=== PATIENT | male | born 1965 | race Caucasian/White ===

== ENCOUNTER 2017-01-12 19:33 | Inpatient (IN) | payer OTHER ==
[2017-01-12] MEDS ORDERED: ACETAMINOPHEN 325 MG TABLET (FP) ONE (20:29)
[2017-01-12] MEDS ORDERED: ACETAMINOPHEN 325 MG TABLET (FP) PO ONE (20:32)
[2017-01-12] MEDS ORDERED: SODIUM CHLORIDE 0.9% 1000 ML INFUS.BAG IV STA (21:06)
--- NOTE | 2017-01-12 21:19 | PDOC ---
History of Present Illness - General Chief Complaint: Pain Stated Complaint: ABSCESS BOIL Time Seen by Provider: 01/12/17 21:01 History Source: Patient - History of Present Illness Initial Comments: 01/12/17 21:27 51 year old male with left groin pain and abscess worsening x 1 week. reports worsening redness, tenderness and tmax 101 at home. + smoker no pmhx. no PMD Past History - Past Medical History Allergies/Adverse Reactions: Allergies Allergy/AdvReac Type Severity Reaction Status Date / Time No Known Allergies Allergy Verified 01/12/17 19:53 Home Medications: Ambulatory Orders NK [No Known Home Medication] 01/12/17 Other medical history: Pt denies - Suicide/Smoking/Psychosocial Hx Smoking History: Current every day smoker Have you smoked in the past 12 months: Yes Number of Cigarettes Smoked Daily: 10 Information on smoking cessation initiated: No Hx Alcohol Use: No Drug/Substance Use Hx: No Substance Use Type: None Review of Systems - Review of Systems Integumentary: Yes: Other (left groin abscess) *Physical Exam - Vital Signs Last Vital Signs Temp Pulse Resp BP Pulse Ox 100.1 F H 109 H 20 145/96 98 01/12/17 19:54 01/12/17 19:54 01/12/17 19:54 01/12/17 19:54 01/12/17 19:54 - Physical Exam General Appearance: Yes: Appropriately Dressed Respiratory/Chest: positive: Lungs Clear, Normal Breath Sounds Cardiovascular: positive: Regular Rhythm, Regular Rate, Tachycardia Gastrointestinal/Abdominal: positive: Normal Bowel Sounds, Soft Extremity: positive: Normal Capillary Refill, Normal Inspection, Normal Range of Motion Integumentary: positive: Normal Color, Dry, Warm, Erythema (left groin draining small amount of pus with erythema and streaking to scrotum and groin. + inguinal lymphadenopathy) Neurologic: positive: Fully Oriented, Alert, Normal Mood/Affect Heart Score/ECG Review - ECG Intrepretation Rhythm: Regular Rhythm Comment:: 01/12/17 21:42 NSR: 80 ED Treatment Course - LABORATORY CBC & Chemistry Diagram: 01/12/17 21:30 01/12/17 21:37 - Medications Given in the ED: ED Medications Discontinued Medications Generic Name Dose Route Start Last Admin Trade Name Freq PRN Reason Stop Dose Admin Acetaminophen 650 mg 01/12/17 20:32 01/12/17 20:32 Tylenol - PO 01/12/17 20:33 650 mg NOW ONE Administration Medical Decision Making - Medical Decision Making 01/12/17 21:29 A: left groin abscess P: cbc cmp Blood culture urine culture wound culture lactic acid IVF EKG/ chest xray soft tissue u/s fever/ pain control IV antibiotics *DC/Admit/Observation/Transfer Diagnosis at time of Disposition: Abscess of left groin, Abscess or cellulitis of groin - Discharge Dispostion Admit: Yes
[2017-01-12 21:39] LABS: BASOPHIL 0.7 % (0-2.0); EOSINOPHIL 0.5 % (0-4.5); MCHC 34.7 g/dl (32.0-35.9); MEAN CELL VOLUME 92.2 fl (80-96); MEAN PLT VOLUME 9.5 fl (7.5-11.1); PLATELET COUNT 217 K/MM3 (134-434); RDW 13.5 % (11.9-15.9); WHITE BLOOD COUNT 19.5 K/mm3 (4.0-10.0)
[2017-01-12 21:57] LABS: INR 1.21 (0.82-1.09); PROTHROMBIN TIME (PATIENT) 13.4 SEC (9.98-11.88)
[2017-01-12 22:00] LABS: ACTIVATED PTT 23.3 SECONDS (26.9-34.4)
[2017-01-12] MEDS ORDERED: PIPERACILLIN/TAZOB 4.5 GM/100 ML PRE-DOCKED IVPB ONE (22:44)
[2017-01-12] MEDS ORDERED: PIPERACILLIN/TAZOB 4.5 GM 100 ML IVPB ONE (22:52)
[2017-01-12 22:53] LABS: URINE APPEARANCE CLEAR; URINE BILIRUBIN NEGATIVE (NEGATIVE); URINE BLOOD 1+ (NEGATIVE); URINE COLOR YELLOW; URINE GLUCOSE (UA) 3+ (NEGATIVE); URINE KETONE 1+ (NEGATIVE); URINE LEUK ESTERASE NEGATIVE (NEGATIVE); URINE NITRITE NEGATIVE (NEGATIVE); URINE PROTEIN NEGATIVE (NEGATIVE)
[2017-01-12 23:05] LABS: URINE MUCUS RARE; URINE RBC <1 /hpf (0-3); URINE WBC 1 /hpf (3-5)
--- NOTE | 2017-01-12 23:18 | PN ---
Teaching Attending Note Name of Resident: Hilaria Lopez ATTENDING PHYSICIAN STATEMENT I saw and evaluated the patient. I reviewed the resident's note and discussed the case with the resident. I agree with the resident's findings and plan as documented. SUBJECTIVE:51 yo M who presents with L. groin abcesses. States he was febrile at home to 101. Denies any past surgical or medical hx, but is a current smoker. OBJECTIVE: Physical: VS: Vital Signs Period Temp Pulse Resp BP Sys/Gilliam Pulse Ox Last 24 Hr 100.1 F 109 20 145/96 98 GEN: NAD, Resting in bed, AA0X3 HEENT: NCAT, PERRL, throat without erythema or exudates CARD: RRR S1, S2 RESP: CTAB ABD: BSX4, NTD to palpation EXT:- C/C/E GROIN with 3 cm firm mass on left with surrounding erythema and white.serounsanginous drainage. CBCD WBC 19.5 K/mm3 (4.0-10.0) H 01/12/17 21:30 RBC 4.33 M/mm3 (4.00-5.60) 01/12/17 21:30 Hgb 13.9 GM/dL (11.7-16.9) 01/12/17 21:30 Hct 39.9 % (35.4-49) 01/12/17 21:30 MCV 92.2 fl (80-96) 01/12/17 21:30 MCHC 34.7 g/dl (32.0-35.9) 01/12/17 21:30 RDW 13.5 % (11.9-15.9) 01/12/17 21:30 Plt Count 217 K/MM3 (134-434) 01/12/17 21:30 MPV 9.5 fl (7.5-11.1) 01/12/17 21:30 CMP Sodium Cancelled 01/12/17 21:37 Potassium Cancelled 01/12/17 21:37 Chloride Cancelled 01/12/17 21:37 Carbon Dioxide Cancelled 01/12/17 21:37 Anion Gap Cancelled 01/12/17 21:37 BUN Cancelled 01/12/17 21:37 Creatinine Cancelled 01/12/17 21:37 Creat Clearance w eGFR Cancelled 01/12/17 21:37 Random Glucose Cancelled 01/12/17 21:37 Calcium Cancelled 01/12/17 21:37 Total Bilirubin Cancelled 01/12/17 21:37 AST Cancelled 01/12/17 21:37 ALT Cancelled 01/12/17 21:37 Alkaline Phosphatase Cancelled 01/12/17 21:37 Total Protein Cancelled 01/12/17 21:37 Albumin Cancelled 01/12/17 21:37 CARDIAC ENZYMES Creatine Kinase Cancelled 01/12/17 21:37 Troponin I Cancelled 01/12/17 21:37 L. Groin US- 2.4X2.4X0.9cm irregular elliptical shaped structure suggestive of abcess CMP Sodium 136 mmol/L (136-145) 01/12/17 22:34 Potassium 3.6 mmol/L (3.5-5.1) 01/12/17 22:34 Chloride 100 mmol/L (98-107) 01/12/17 22:34 Carbon Dioxide 24 mmol/L (21-32) 01/12/17 22:34 Anion Gap 12 (8-16) 01/12/17 22:34 BUN 13 mg/dL (7-18) 01/12/17 22:34 Creatinine 0.7 mg/dL (0.7-1.3) 01/12/17 22:34 Creat Clearance w eGFR > 60 (>60) 01/12/17 22:34 Random Glucose 271 mg/dL (74-106) H 01/12/17 22:34 Lactic Acid 0.9 mmol/L (0.4-2.0) 01/12/17 21:37 Calcium 8.4 mg/dL (8.5-10.1) L 01/12/17 22:34 Total Bilirubin 0.8 mg/dL (0.2-1.0) 01/12/17 22:34 AST 20 U/L (15-37) 01/12/17 22:34 ALT 50 U/L (12-78) 01/12/17 22:34 Alkaline Phosphatase 107 U/L (45-117) 01/12/17 22:34 Creatine Kinase 46 IU/L (39-308) 01/12/17 22:34 Troponin I < 0.02 ng/ml (0.00-0.05) 01/12/17 22:34 Total Protein 7.0 g/dl (6.4-8.2) 01/12/17 22:34 Albumin 3.3 g/dl (3.4-5.0) L 01/12/17 22:34 ASSESSMENT AND PLAN: 51 M with no pmhx who presents with groin abcess and found to be septic 1.) Sepsis - Most likely from groin abcess - AFTER BMP Vanco/Zosyn with renal dosing - ID consult and Sx. Consult to eval. need for possible I&D - Repeat LA - IVF - Hiv test if pt. willing - Repeat labs in am - CT Pelvis 2.) Dvt Ppx - Low risk - SCD Place in Med-Sx
--- NOTE | 2017-01-12 23:21 | HP ---
Admitting History and Physical - Admission History of Present Illness: 51M with no PMH and no follow up with PMD presents to the ED with a 1 weeks history of a left groin abscess. For the past week it has been worsening. He states he has had fevers and chills at home for the past 3 days. Patient endorses some purulent drainage. He denies nausea vomiting chest pain or shortness of breath. Denies testicular mass. Erythema has been spreading down from left superior part of groin down to perineum. History Source: Patient Limitations to Obtaining History: No Limitations - Smoking History Smoking history: Current every day smoker Have you smoked in the past 12 months: Yes Aproximately how many cigarettes per day: 10 - Alcohol/Substance Use Hx Alcohol Use: No Home Medications - Allergies Allergies/Adverse Reactions: Allergies Allergy/AdvReac Type Severity Reaction Status Date / Time No Known Allergies Allergy Verified 01/12/17 19:53 - Home Medications Home Medications: Ambulatory Orders NK [No Known Home Medication] 01/12/17 Review of Systems - Review of Systems Constitutional: reports: Chills, Fever Genitourinary: reports: Testicular Swelling, Other Breasts: reports: No Symptoms Reported Musculoskeletal: reports: No Symptoms Integumentary: reports: Erythema, Wound, Other (left groin draining abscess) Endocrine: reports: Intolerance to Heat Psychiatric: reports: No Symptoms Physical Examination Vital Signs: Vital Signs Temperature 100.1 F H 01/12/17 19:54 Pulse Rate 109 H 01/12/17 19:54 Respiratory Rate 20 01/12/17 19:54 Blood Pressure 145/96 01/12/17 19:54 O2 Sat by Pulse Oximetry (%) 98 01/12/17 19:54 Constitutional: Yes: Well Nourished, No Distress, Calm Eyes: Yes: Conjunctiva Clear HENT: Yes: Atraumatic, Normocephalic Neck: Yes: Supple, Trachea Midline Cardiovascular: Yes: Regular Rate and Rhythm, S1, S2. No: Murmur Respiratory: Yes: Regular, CTA Bilaterally Gastrointestinal: Yes: Normal Bowel Sounds, Soft ...Rectal Exam: Yes: WNL, Sphincter Tone Normal. No: Erythema, Hemorrhoids/ Internal, Induration, Mass Renal/: Yes: Other (+scrotal edema on left +scrotal erythema on left Induration of left proximal groin with some minimal fluctuance dame induration and fluctuance tracks downs to perineum where purulent drainage is expressed. no crepitance). No: CVA Tenderness - Left, CVA Tenderness - Right Edema: No Peripheral Pulses WNL: Yes Peripheral Pulses: Left Doralis Pedis: 2+, Right Dorsalis Pedis: 2+ Neurological: Yes: WNL, Alert, Oriented, Cran Nerves II-XII Intact ...Motor Strength: WNL Psychiatric: Yes: WNL, Alert, Oriented Labs: CBC, BMP 01/12/17 21:30 Imaging - Results Chest X-ray: Image Reviewed Ultrasound: Report Reviewed Assessment/Plan 51 with no diagnosed PMH presents with left groin abscess associated with fevers and chill. Problems list: Groin abscess sepsis hyperglycemia leukocytosis Plan: admit to inpatient med/surg stat dose of zosyn ID consult Surgery consult consider urology and plastics surgery consult if needed pelvic CT scan with IV contrast repeat labs in AM NPO in case of surgical intervention DVT PPx HbA1C diabetic diet when able to take PO BGM to monitor glucose hyperglycemia may be due to sepsis but may also be due to underlying diabetes once able to eat will do diabetic ciet and BGM with ISS ACHS f/u UCx f/u BCx F/U wound culture full H&P to follow Case discussed with attending and admitting production internship Visit type - Emergency Visit Emergency Visit: Yes ED Registration Date: 01/12/17 Care time: The patient presented to the Emergency Department on the above date and was hospitalized for further evaluation of their emergent condition. - New Patient This patient is new to me today: Yes Date on this admission: 01/13/17 - Critical Care Critical Care patient: No
[2017-01-12] MEDS ORDERED: VANCOMYCIN 1,250 MG in DEXTROSE 5%-WATER - 250 ML IVPB ONE (23:22)
[2017-01-12 23:51] LABS: ALBUMIN 3.3 g/dl (3.4-5.0); ANION GAP 12 (8-16); BILIRUBIN,TOTAL 0.8 mg/dL (0.2-1.0); CALCIUM 8.4 mg/dL (8.5-10.1); CO2 24 mmol/L (21-32); CREATININE 0.7 mg/dL (0.7-1.3); GLUCOSE,RANDOM 271 mg/dL (74-106); SGOT/AST 20 U/L (15-37); SGPT/ALT 50 U/L (12-78)
[2017-01-12 23:54] LABS: ALK PHOS 107 U/L (45-117); CPK 46 IU/L (39-308); TROPONIN I < 0.02 ng/ml (0.00-0.05)
[2017-01-13] MEDS ORDERED: VANCOMYCIN 1,250 MG in SODIUM CHLORIDE 250 ML IVPB ONE (00:07)
[2017-01-13] MEDS ORDERED: ACETAMINOPHEN 325 MG TABLET (FP) PO PRN (00:11)
[2017-01-13] MEDS ORDERED: SODIUM CHLORIDE 1,000 ML IV SCH ×3 (00:15→12:36)
--- NOTE | 2017-01-13 00:34 | HP ---
CHIEF COMPLAINT: Left groin abscess PCP: none HISTORY OF PRESENT ILLNESS: 51yo M with no significant PMH presents c/o Left groin abscess x 1 week. Pt reports subjective fever x 3 days. Worsening pain and growing abscess prompted pt to come to ER today. Pain from abscess is alleviated with Tylenol and aggravated with movement. Abscess runs from Left suprapubic to Left perianal region, excluding scrotum. Pt denies trauma/injury to area. Pt denies diaphoresis, chest pain, palpitations, sob, nausea, vomiting. Pt denies hx of STI. ER course was notable for: (1) US soft tissue - reveals 2.4 x 2.4 x 0.9 cm irregular/elliptical shaped abscess with internal debris. (2) Tylenol, Zosyn, Vancomycin, NS (3) blood culture, urine culture, wound culture Recent Travel: denies PAST MEDICAL HISTORY: denies PAST SURGICAL HISTORY: denies Social History: Smokin cigarettes/day Alcohol: occasional Drugs: denies Denies hx of STIs. Family History: denies Allergies No Known Allergies Allergy (Verified 01/12/17 19:53) HOME MEDICATIONS: Home Medications Medication Instructions Recorded NK [No Known Home Medication] 01/12/17 REVIEW OF SYSTEMS CONSTITUTIONAL: Present: fever Absent: chills, diaphoresis, generalized weakness, malaise, loss of appetite, weight change HEENT: Absent: rhinorrhea, nasal congestion, throat pain, visual changes CARDIOVASCULAR: Absent: chest pain, syncope, palpitations, irregular heart rate, lightheadedness , peripheral edema RESPIRATORY: Absent: cough, shortness of breath, orthopnea, wheezing, stridor, hemoptysis GASTROINTESTINAL: Absent: abdominal pain, abdominal distension, nausea, vomiting, diarrhea, constipation, melena, hematochezia GENITOURINARY: Absent: dysuria, hematuria, flank pain MUSCULOSKELETAL: Absent: myalgia, arthralgia, joint swelling, back pain, neck pain SKIN: Present: painful abscess to Left groin Absent: itching, pallor HEMATOLOGIC/IMMUNOLOGIC: Absent: easy bleeding, easy bruising NEUROLOGIC: Absent: headache, focal weakness or paresthesias, dizziness PHYSICAL EXAMINATION Last Vital Signs Temp Pulse Resp BP Pulse Ox 100.1 F H 109 H 20 145/96 98 01/12/17 19:54 01/12/17 19:54 01/12/17 19:54 01/12/17 19:54 01/12/17 19:54 GENERAL: Awake, alert, and fully oriented, in no acute distress. HEAD: Normal with no signs of trauma. EYES: Extraocular movements intact, sclera anicteric, conjunctiva clear. No lid lag. EARS, NOSE, THROAT: Oropharynx clear without exudates. Moist mucous membranes. NECK: Normal range of motion, supple, trachea midline. LUNGS: Breath sounds equal, clear to auscultation bilaterally. No wheezes, and no crackles. No accessory muscle use. HEART: Regular rate and rhythm, normal S1 and S2 without murmur, rub or gallop. ABDOMEN: Soft, nontender, not distended, normoactive bowel sounds, no guarding, no rebound, no masses. : indurated, warm, red area tracks down from Left suprapubic to Left perianal region. Purulent drainage noted in Left perianal region. Scrotum swollen and erythematous, however, no masses appreciated. No crepitus. Uncircumsized penis and unshaved genital area noted. LOWER EXTREMITIES: Warm, well-perfused. No peripheral edema. NEUROLOGICAL: Cranial nerves II-XII intact. Normal speech. Normal gait. PSYCHIATRIC: Cooperative. Good eye contact. Appropriate mood and affect. SKIN: Tinea versicolor rash spanning from Left mid-back to triceps area of Left upper arm. Warm, dry, normal turgor. Laboratory Last Values WBC 19.5 K/mm3 (4.0-10.0) H 01/12/17 21:30 RBC 4.33 M/mm3 (4.00-5.60) 01/12/17 21:30 Hgb 13.9 GM/dL (11.7-16.9) 01/12/17 21:30 Hct 39.9 % (35.4-49) 01/12/17 21:30 MCV 92.2 fl (80-96) 01/12/17 21:30 MCH 32.0 pg (25.7-33.7) 01/12/17 21:30 MCHC 34.7 g/dl (32.0-35.9) 01/12/17 21:30 RDW 13.5 % (11.9-15.9) 01/12/17 21:30 Plt Count 217 K/MM3 (134-434) 01/12/17 21:30 MPV 9.5 fl (7.5-11.1) 01/12/17 21:30 Neutrophils % 75.0 % (42.8-82.8) 01/12/17 21:30 Lymphocytes % 16.6 % (8-40) 01/12/17 21:30 Monocytes % 7.2 % (3.8-10.2) 01/12/17 21:30 Eosinophils % 0.5 % (0-4.5) 01/12/17 21:30 Basophils % 0.7 % (0-2.0) 01/12/17 21:30 PT with INR 13.40 SEC (9.98-11.88) H 01/12/17 21:30 INR 1.21 (0.82-1.09) H 01/12/17 21:30 PTT (Actin FS) 23.3 SECONDS (26.9-34.4) L 01/12/17 21:30 Sodium 136 mmol/L (136-145) 01/12/17 22:34 Potassium 3.6 mmol/L (3.5-5.1) 01/12/17 22:34 Chloride 100 mmol/L (98-107) 01/12/17 22:34 Carbon Dioxide 24 mmol/L (21-32) 01/12/17 22:34 Anion Gap 12 (8-16) 01/12/17 22:34 BUN 13 mg/dL (7-18) 01/12/17 22:34 Creatinine 0.7 mg/dL (0.7-1.3) 01/12/17 22:34 Creat Clearance w eGFR > 60 (>60) 01/12/17 22:34 Random Glucose 271 mg/dL (74-106) H 01/12/17 22:34 Lactic Acid 0.9 mmol/L (0.4-2.0) 01/12/17 21:37 Calcium 8.4 mg/dL (8.5-10.1) L 01/12/17 22:34 Total Bilirubin 0.8 mg/dL (0.2-1.0) 01/12/17 22:34 AST 20 U/L (15-37) 01/12/17 22:34 ALT 50 U/L (12-78) 01/12/17 22:34 Alkaline Phosphatase 107 U/L (45-117) 01/12/17 22:34 Creatine Kinase 46 IU/L (39-308) 01/12/17 22:34 Troponin I < 0.02 ng/ml (0.00-0.05) 01/12/17 22:34 Total Protein 7.0 g/dl (6.4-8.2) 01/12/17 22:34 Albumin 3.3 g/dl (3.4-5.0) L 01/12/17 22:34 Urine Color Yellow 01/12/17 22:40 Urine Appearance Clear 01/12/17 22:40 Urine pH 5.0 (5.0-8.0) 01/12/17 22:40 Urine Protein Negative (NEGATIVE) 01/12/17 22:40 Urine Glucose (UA) 3+ (NEGATIVE) H 01/12/17 22:40 Urine Ketones 1+ (NEGATIVE) H 01/12/17 22:40 Urine Blood 1+ (NEGATIVE) H 01/12/17 22:40 Urine Nitrite Negative (NEGATIVE) 01/12/17 22:40 Urine Bilirubin Negative (NEGATIVE) 01/12/17 22:40 Urine Urobilinogen 2.0 mg/dL (0.2-1.0) 01/12/17 22:40 Urine RBC <1 /hpf (0-3) 01/12/17 22:40 Urine WBC 1 /hpf (3-5) 01/12/17 22:40 Ur Epithelial Cells Rare /hpf (FEW) 01/12/17 22:40 Urine Mucus Rare 01/12/17 22:40 IMAGIN01/12/17 EKG - NSR, possible Left atrium enlargement 01/12/17 CXR - appears negative normal, official report pending 01/12/17 US soft tissue - reveals 2.4 x 2.4 x 0.9 cm irregular/elliptical shaped abscess with internal debris. ASSESSMENT/PLAN: 51yo M with no significant PMH presents c/o Left groin abscess, admitted for sepsis 2/2 abscess. 1) Sepsis 2/2 Left groin abscess - leukocytosis, tachycardia, abscess infection - continue IVFs - Vancomycin and Zosyn given - one more dose of Zosyn ordered for am - ID Consult - CT pelvis with IV contrast - Surgery Consult for possible I&D - consider Urology or Plastic Surgery Consult - Tylenol 650mg q4hr prn for pain or fever - type and screen, coags, repeat lactic acid - Pt declined HIV testing. 2) hyperglycemia - 2/2 infection vs unknown hx of DM - hgba1c - BGM q6hr - sliding scale insulin 3) FEN - Fluids: NS @ 100 ml/hr - Electrolytes: wnl, continue to monitor - Nutrition: npo for possible surgical intervention 4) Prophylaxis - Heparin 5,000U q8hr for DVT prophylaxis Admit to Med-Surg. Visit type - Emergency Visit Emergency Visit: Yes ED Registration Date: 01/12/17 Care time: The patient presented to the Emergency Department on the above date and was hospitalized for further evaluation of their emergent condition. - New Patient This patient is new to me today: Yes Date on this admission: 01/13/17 - Critical Care Critical Care patient: No
[2017-01-13] MEDS: INSULIN SLIDING SCALE (NOVOLOG) 1 VIAL SQ SCH ×5 (01:46→22:19)
[2017-01-13] MEDS ORDERED: PIPERACILLIN/TAZOB 4.5 GM/100 ML PRE-DOCKED IVPB ONE (04:45)
[2017-01-13] MEDS ORDERED: PIPERACILLIN/TAZOB 3.375 GM/50 ML PRE-DOCKED IVPB SCH (05:00)
[2017-01-13] MEDS ORDERED: HEPARIN NA (PORCINE) 5,000 UNITS/ML 1ML VIAL SQ SCH (06:00)
[2017-01-13] MEDS ORDERED: PIPERACILLIN/TAZOBACTAM 3.375 GM VIAL IVPB ONE ×2 (06:26→15:10)
[2017-01-13] MEDS ORDERED: DEXTROSE 5%-WATER - 50 ML IVPB ONE ×2 (06:27→15:10)
[2017-01-13] MEDS ORDERED: PIPERACILLIN/TAZOB 3.375 GM 3.375 GM in DEXTROSE 5%-WATER - 50 ML IVPB ONE (06:30)
[2017-01-13 08:23] LABS: MCH 31.4 pg (25.7-33.7); MCHC 33.9 g/dl (32.0-35.9); MEAN CELL VOLUME 92.8 fl (80-96); MEAN PLT VOLUME 9.5 fl (7.5-11.1); PLATELET COUNT 205 K/MM3 (134-434); RDW 13.7 % (11.9-15.9); WHITE BLOOD COUNT 14.9 K/mm3 (4.0-10.0)
[2017-01-13 08:31] LABS: INR 1.21 (0.82-1.09); PROTHROMBIN TIME (PATIENT) 13.4 SEC (9.98-11.88)
[2017-01-13 08:34] LABS: ACTIVATED PTT 24.7 SECONDS (26.9-34.4)
[2017-01-13 08:38] LABS: ANION GAP 9 (8-16); CALCIUM 7.9 mg/dL (8.5-10.1); CO2 24 mmol/L (21-32); CREATININE 0.6 mg/dL (0.7-1.3); GLUCOSE,RANDOM 183 mg/dL (74-106); PHOSPHOROUS 3.3 mg/dL (2.5-4.9)
--- NOTE | 2017-01-13 08:44 | CONSULT ---
- Consultation REQUESTING PROVIDER: Tristen Lemon - General Surgery CONSULT REQUEST: We have been asked to surgically evaluate this patient for left groin abscess. PCP: Fahad Menendez MD HPI: Called to janes 51yo male w/ no significant PMHx, presents to [facility] ED w/ c/ o left groin abscess x 1 week. Reports subjective fever x 3 days. Abscess runs from Left suprapubic to Left perianal region, excluding scrotum. Pt denies trauma/injury to area. While in ED, he had an U/S which identified 2.4 x 2.4 x 0.9 cm irregular/elliptical shaped abscess with internal debris. He denies diaphoresis, chest pain, palpitations, sob, nausea, vomiting. Denies hx of STI. Denies dysuria, frequency, urgency, hesitancy, hematuria, flank pain, genital pain PMHx: Denies PSHx: Denies Home Meds: Denies. AllergiesL Denies. ROS: CONSTITUTIONAL: Absent: generalized weakness, malaise, loss of appetite, weight change CARDIOVASCULAR: Absent: palpitations, irregular heart rate, lightheadedness, peripheral edema RESPIRATORY: Absent: wheezing, stridor, hemoptysis GASTROINTESTINAL:Absent: constipation, melena, hematochezia GENITOURINARY: Absent: SEE HPI MUSCULOSKELETAL: Absent: myalgia, arthralgia, joint swelling, back pain, neck pain SKIN: Absent: SEE HPI HEMATOLOGIC/IMMUNOLOGIC: Absent: easy bleeding, easy bruising, lymphadenopathy NEUROLOGIC: Absent: headache, focal weakness, paresthesias, dizziness, seizure, mental status changes, bladder or bowel incontinence PSYCHIATRIC: Absent: anxiety, depression, suicidal or homicidal ideation, hallucinations. PE: GENERAL: Awake, alert, and fully oriented, in no acute distress. HEAD: Normal with no signs of trauma. EYES: PERRL, sclera anicteric, conjunctiva clear. LUNGS: Clear to auscultation bilat anteriorly. No wheezes, and no crackles. No accessory muscle use. HEART: Regular rate and rhythm. No murmurs ABD: Soft, nontender, not distended, normoactive bowel sounds, no guarding, no rebound, no masses. No organomegaly. LLE: + groin abscess. TTP. 2.4 x 2.4 x 0.9 cm abscess. Erythema. Indurated. Vital Signs Temperature 98.6 F 01/13/17 06:00 Pulse Rate 68 01/13/17 06:00 Respiratory Rate 68 H 01/13/17 06:00 Blood Pressure 113/71 01/13/17 06:00 O2 Sat by Pulse Oximetry (%) 99 01/13/17 02:00 Lab Results WBC 19.5 K/mm3 (4.0-10.0) H 01/12/17 21:30 RBC 4.33 M/mm3 (4.00-5.60) 01/12/17 21:30 Hgb 13.9 GM/dL (11.7-16.9) 01/12/17 21:30 Hct 39.9 % (35.4-49) 01/12/17 21:30 MCV 92.2 fl (80-96) 01/12/17 21:30 MCHC 34.7 g/dl (32.0-35.9) 01/12/17 21:30 RDW 13.5 % (11.9-15.9) 01/12/17 21:30 Plt Count 217 K/MM3 (134-434) 01/12/17 21:30 Sodium 136 mmol/L (136-145) 01/12/17 22:34 Potassium 3.6 mmol/L (3.5-5.1) 01/12/17 22:34 Chloride 100 mmol/L (98-107) 01/12/17 22:34 Carbon Dioxide 24 mmol/L (21-32) 01/12/17 22:34 Anion Gap 12 (8-16) 01/12/17 22:34 BUN 13 mg/dL (7-18) 01/12/17 22:34 Creatinine 0.7 mg/dL (0.7-1.3) 01/12/17 22:34 Random Glucose 271 mg/dL (74-106) H 01/12/17 22:34 Calcium 8.4 mg/dL (8.5-10.1) L 01/12/17 22:34 INR 1.21 (0.82-1.09) H 01/12/17 21:30 Problem List - Problems (1) Abscess of left groin Assessment/Plan: Going to OR today for I&D. Informed consent obtained and placed in chart. NPO / IVF GI / DVT PPX IV ABX Medical optimization / clearance After Surgery: 1. Aggressive mobilization 2. Regular diet 3. IV ABX 4. Daily packing/dressing change to start POD #1 5. Incentive spirometer 6. CBC, BMP Above plan discussed with Dr. Lemon and agrees. Code(s): L02.214 - CUTANEOUS ABSCESS OF GROIN Visit type - Case Type Case Type: ED Admission - Emergency Emergency Visit: Yes ED Registration Date: 01/12/17 Care time: The patient presented to the Emergency Department on the above date and was hospitalized for further evaluation of their emergent condition. - New patient This patient is new to me today: Yes Date on this admission: 01/13/17
--- NOTE | 2017-01-13 08:56 | PN ---
Physical Exam: SUBJECTIVE: 51yo M with no significant PMH presents c/o Left groin abscess x 1 week. Pt reports subjective fever x 3 days. Worsening pain and growing abscess prompted pt to come to ER today. Pain from abscess is alleviated with Tylenol and aggravated with movement. Abscess runs from Left suprapubic to Left perianal region. Pt denies trauma/injury to area. Pt denies diaphoresis, chest pain, palpitations, sob, nausea, vomiting. Pt denies hx of STI. Patient denies any dysuria, hematuria or frequency. OBJECTIVE: Vital Signs Period Temp Pulse Resp BP Sys/Gilliam Pulse Ox Last 24 Hr 98.6 F-98.7 F 64-68 18-68 113-119/71-75 99 GENERAL: The patient is awake, alert, and fully oriented, in mild distress. HEAD: Normal with no signs of trauma. EYES: conjunctiva clear. No ptosis. ENT: moist mucous membranes. LUNGS: Breath sounds equal, clear to auscultation bilaterally, no wheezes, no crackles, no accessory muscle use. HEART: Regular rate and rhythm, S1, S2 without murmur, rub or gallop. ABDOMEN: Soft, nontender, nondistended, normoactive bowel sounds, no guarding, no rebound, left grom superficial abscess 2x2 , with scrotal erythema. EXTREMITIES: warm, well-perfused, no edema. NEUROLOGICAL: good mentation SKIN: Warm, dry, no rashes or lesions noted, erythema and draining superficial abscess in the left groin. Laboratory Results - last 24 hr 01/13/17 01/13/17 01/13/17 01:44 06:30 06:45 WBC 14.9 H RBC 4.23 Hgb 13.3 Hct 39.3 MCV 92.8 MCH 31.4 MCHC 33.9 RDW 13.7 Plt Count 205 MPV 9.5 PT with INR INR PTT (Actin FS) Sodium Potassium Chloride Carbon Dioxide Anion Gap BUN Creatinine POC Glucometer 269 227 Random Glucose Calcium Phosphorus Magnesium Blood Type Antibody Screen 01/13/17 01/13/17 01/13/17 06:45 06:45 06:45 WBC RBC Hgb Hct MCV MCH MCHC RDW Plt Count MPV PT with INR 13.40 H INR 1.21 H PTT (Actin FS) 24.7 L Sodium 137 Potassium 3.6 Chloride 104 Carbon Dioxide 24 Anion Gap 9 BUN 11 Creatinine 0.6 L POC Glucometer Random Glucose 183 H D Calcium 7.9 L Phosphorus 3.3 Magnesium 2.0 Blood Type A POSITIVE Antibody Screen Negative 01/13/17 08:05 WBC RBC Hgb Hct MCV MCH MCHC RDW Plt Count MPV PT with INR INR PTT (Actin FS) Sodium Potassium Chloride Carbon Dioxide Anion Gap BUN Creatinine POC Glucometer Random Glucose Calcium Phosphorus Magnesium Blood Type A POSITIVE Antibody Screen Current Medications Acetaminophen (Tylenol -) 650 mg PO Q4H PRN PRN Reason: FEVER OR PAIN Fentanyl (Sublimaze Injection -) 50 mcg IVPUSH [id number] PRN PRN Reason: PAIN Stop: 01/16/17 11:55 Heparin Sodium (Porcine) (Heparin -) 5,000 unit SQ TID CHANEL Sodium Chloride (Normal Saline -) 1,000 mls @ 100 mls/hr IV ASDIR CHANEL Last Admin: 01/13/17 13:01 Dose: 100 mls/hr Clindamycin Phosphate (Cleocin 300 Mg Premix Ivpb) 50 mls @ 100 mls/hr IVPB Q8H -IV CHANEL Piperacillin Sod/Tazobactam (Sod 3.375 gm/ Dextrose) 50 mls @ 100 mls/hr IVPB Q8H-IV CHANEL PRN Reason: Protocol Insulin Aspart (Novolog Vial Sliding Scale -) 1 vial SQ Q6HPO CHANEL PRN Reason: Protocol Ondansetron HCl (Zofran Injection) 4 mg IVPUSH Q6H PRN PRN Reason: NAUSEA AND/OR VOMITING Stop: 01/13/17 17:55 Oxycodone HCl (Roxicodone -) 10 mg PO Q4H PRN PRN Reason: SEVERE PAIN Stop: 01/14/17 11:53 Promethazine HCl (Phenergan Injection -) 12.5 mg IVPUSH Q6H PRN PRN Reason: NAUSEA-FOR RESCUE AFTER 15 MIN Stop: 01/13/17 17:55 CBC, BMP 01/13/17 06:45 01/13/17 06:45 IMAGIN01/12/17 EKG - NSR, possible Left atrium enlargement 01/12/17 CXR - No acute pathology 01/12/17 US soft tissue - reveals 2.4 x 2.4 x 0.9 cm irregular/elliptical shaped abscess with internal debris. ASSESSMENT/PLAN: 51yo M with no significant PMH presents c/o Left groin abscess, admitted for sepsis 2/2 abscess. # Sepsis 2/2 Left groin abscess * leukocytosis, tachycardia, abscess infection * continue IVFs * Vancomycin and Zosyn given * one more dose of Zosyn ordered for am * continue zosyn, start clindamycin 300 mg IVBP Q8hr * ID Consult * CT pelvis with IV contrast * Surgery Consult , I&D, was done today * consider Urology or Plastic Surgery Consult * Tylenol 650mg q4hr prn for pain or fever, OXycodone 10 mg Q8hr IVBP * type and screen, coags, repeat lactic acid * HIV screening test # hyperglycemia * 2/2 infection vs unknown hx of DM * hgba1c * BGM q6hr * Insuline sliding scale * Diabetic diet * patient education # FEN * Fluids: NS @ 100 ml/hr * Electrolytes: wnl, continue to monitor * Nutrition: advance to diabetic diet after the I&D #Prophylaxis * DVT: Heparin 5,000U q8hr * GI : No needed Admit to Med-Surg. Visit type - Emergency Visit Emergency Visit: Yes ED Registration Date: 01/12/17 Care time: The patient presented to the Emergency Department on the above date and was hospitalized for further evaluation of their emergent condition. - New Patient This patient is new to me today: Yes Date on this admission: 01/13/17 - Critical Care Critical Care patient: No
--- NOTE | 2017-01-13 09:35 | EKG ---
Test Reason : Blood Pressure : / mmHG Vent. Rate : 080 BPM Atrial Rate : 080 BPM P-R Int : 160 ms QRS Dur : 084 ms QT Int : 354 ms P-R-T Axes : 057 030 027 degrees QTc Int : 408 ms NORMAL SINUS RHYTHM POSSIBLE LEFT ATRIAL ENLARGEMENT BORDERLINE ECG NO PREVIOUS ECGS AVAILABLE Confirmed by YUMIKO STERN, NICOLAS ([id number]) on 01/13/2017 9:35:21 AM Referred By: Confirmed By:NICOLAS CALDERON MD
[2017-01-13] MEDS ORDERED: MIDAZOLAM HCL 2 MG/2 ML SINGLE DOSE VIAL ONE (11:11)
[2017-01-13] MEDS ORDERED: PROPOFOL 20 ML ONE (11:15)
[2017-01-13] MEDS ORDERED: ONDANSETRON 4 MG/2 ML VIAL ONE (11:41)
[2017-01-13] MEDS ORDERED: DEXAMETHASONE SOD PHOSPHATE 4 MG/1 ML VIAL ONE (11:41)
[2017-01-13] MEDS ORDERED: ONDANSETRON 4 MG/2 ML VIAL IVPUSH PRN ×2 (11:54→12:36)
[2017-01-13] MEDS ORDERED: PROMETHAZINE HCL 25 MG/1 ML VIAL IVPUSH PRN ×2 (11:54→12:36)
[2017-01-13] MEDS ORDERED: oxyCODONE HCL 5 MG TABLET PO PRN (11:54)
--- NOTE | 2017-01-13 12:02 | OP ---
Operative Note - Note: Operative Date: 01/13/17 Pre-Operative Diagnosis: abscess left perineum Operation: incision/drainage abscess left perineum Surgeon: Tristen Lemon Anesthesiologist/SOCIAL SCIENCES RESEARCH SCIENTIST: Jaime Vasquez Anesthesia: General Specimens Removed: c and s Estimated Blood Loss (mls): 10 Drains & Tubes with Location: packing
[2017-01-13] MEDS: KETOROLAC TROMETHAMINE 30 MG/1 ML VIAL IVPUSH ONE ×2 (12:20→15:32)
--- NOTE | 2017-01-13 13:43 | PN ---
Teaching Attending Note Name of Resident: Yong Gaming ATTENDING PHYSICIAN STATEMENT I saw and evaluated the patient. I reviewed the resident's note and discussed the case with the resident. I agree with the resident's findings and plan as documented. SUBJECTIVE: Patient complains of left groin pain. OBJECTIVE: HEART: S1S2, RRR LUNGS: Clear ABDOMEN: Soft, non-tender, non-distended, normal BS EXTREMITIES: No edema, tender mass in left groin with overlying induration and erythema GENITOURINARY: Scrotum/testes non-tender and not edematous ASSESSMENT AND PLAN: This is a 51 year old man with no significant medical history who presented to the ER complaining of left groin pain. 1. Sepsis secondary to left groin abscess - Given Zosyn, Vancomycin - Awaiting ID consult - Surgery consult appreciated - plan for incision and drainage in OR today 2. Probable uncontrolled type 2 DM - Reports polyuria and polydipsia at home prior to admission - Continue Novolog sliding scale - Hemoglobin A1c pending
[2017-01-13] MEDS ORDERED: INSULIN (NOVOLOG) ASPART 100 UNITS/ML 10ML VIAL ONE ×2 (14:03→22:08)
--- NOTE | 2017-01-13 14:59 | CON.ID ---
Consult Consult Specialty:: infectious diseases Reason for Consultation:: perinium abscess - History of Present Illness Chief Complaint: swelling and pain in the scrotum History of Present Illness: 51M with no PMH and no follow up with PMD admitted with a 1 weeks history of a left groin abscess. For the past week it has been worsening. He states he has had fevers and chills at home for the past 3 days. Says she had purulent drainage . He denies nausea vomiting chest pain or shortness of breath. Denies testicular mass. patient mentions that erythema has been spreading patient was evaluated found to have abscess ,surgery evaluated and took the patient to the operating room and I and D was done patient now post i and d still with pain mainly in the left groin - History Source History Provided By: Patient Limitations to Obtaining History: No Limitations - Alcohol/Substance Use Hx Alcohol Use: No - Smoking History Smoking history: Current every day smoker Have you smoked in the past 12 months: Yes Aproximately how many cigarettes per day: 10 Home Medications - Allergies Allergies/Adverse Reactions: Allergies Allergy/AdvReac Type Severity Reaction Status Date / Time No Known Allergies Allergy Verified 01/12/17 19:53 - Home Medications Home Medications: Ambulatory Orders NK [No Known Home Medication] 01/12/17 Review of Systems - Review of Systems Constitutional: reports: No Symptoms Eyes: reports: No Symptoms HENT: reports: No Symptoms Neck: reports: No Symptoms Cardiovascular: reports: No Symptoms Respiratory: reports: No Symptoms Gastrointestinal: reports: No Symptoms Genitourinary: reports: No Symptoms Musculoskeletal: reports: Muscle Pain, Other Integumentary: reports: Change in Color, Erythema Neurological: reports: No Symptoms Endocrine: reports: No Symptoms Hematology/Lymphatic: reports: No Symptoms Psychiatric: reports: No Symptoms Physical Exam Vital Signs: Vital Signs Temperature 97.7 F 01/13/17 13:11 Pulse Rate 68 01/13/17 13:11 Respiratory Rate 20 01/13/17 13:11 Blood Pressure 113/65 01/13/17 13:11 O2 Sat by Pulse Oximetry (%) 97 01/13/17 13:00 Constitutional: Yes: Well Nourished, No Distress, Calm Eyes: Yes: Conjunctiva Clear Cardiovascular: Yes: WNL, Regular Rate and Rhythm Respiratory: Yes: Regular, CTA Bilaterally Gastrointestinal: Yes: Normal Bowel Sounds, Soft Musculoskeletal: Yes: Other Extremities: Yes: WNL Wound/Incision: Yes: Dressing Dry and Intact Neurological: Yes: Alert, Oriented, Other (left groing swelling) Labs: CBC, BMP 01/13/17 06:45 01/13/17 06:45 Imaging - Results Chest X-ray: Report Reviewed, Image Reviewed Cat Scan: Report Reviewed, Image Reviewed Assessment/Plan ASSESSMENT/PLAN: 51yo M with no significant PMH presents c/o Left groin abscess, admitted for sepsis 2/2 abscess. 1) left groin abscess leukocytosis hyperglycemia started patient on abx await for all cx report to be back rest as per primary team
[2017-01-13] MEDS: PIPERACILLIN/TAZOB 3.375 GM 3.375 GM in DEXTROSE 5%-WATER - 50 ML IVPB SCH ×2 (15:32→17:43)
[2017-01-13] MEDS: HEPARIN NA (PORCINE) 5,000 UNITS/ML 1ML VIAL SQ SCH ×2 (15:32→22:16)
[2017-01-13] MEDS ORDERED: PT OWN MED DRAWER 7, Y5N ONE (17:37)
[2017-01-13] MEDS: CLINDAMYCIN 300 MG PREMIX IVPB 50 ML IVPB SCH (17:41)
[2017-01-14] MEDS: INSULIN SLIDING SCALE (NOVOLOG) 1 VIAL SQ SCH ×4 (00:44→17:46)
[2017-01-14] MEDS ORDERED: DEXTROSE 5%-WATER - 50 ML IVPB ONE ×3 (02:06→17:29)
[2017-01-14] MEDS ORDERED: PIPERACILLIN/TAZOBACTAM 3.375 GM VIAL IVPB ONE ×3 (02:06→17:29)
[2017-01-14] MEDS: PIPERACILLIN/TAZOB 3.375 GM 3.375 GM in DEXTROSE 5%-WATER - 50 ML IVPB SCH ×3 (02:35→17:46)
[2017-01-14] MEDS: CLINDAMYCIN 300 MG PREMIX IVPB 50 ML IVPB SCH ×2 (02:58→10:29)
[2017-01-14] MEDS: HEPARIN NA (PORCINE) 5,000 UNITS/ML 1ML VIAL SQ SCH ×3 (06:40→22:48)
[2017-01-14] MEDS: oxyCODONE HCL 5 MG TABLET PO PRN ×2 (06:52→11:38)
[2017-01-14 07:07] LABS: MCH 31.5 pg (25.7-33.7); MEAN CELL VOLUME 92.7 fl (80-96); MEAN PLT VOLUME 9.2 fl (7.5-11.1); PLATELET COUNT 218 K/MM3 (134-434); RDW 13.8 % (11.9-15.9); WHITE BLOOD COUNT 15.1 K/mm3 (4.0-10.0)
[2017-01-14 07:34] LABS: ANION GAP 11 (8-16); CALCIUM 8.3 mg/dL (8.5-10.1); CO2 25 mmol/L (21-32); CREATININE 0.6 mg/dL (0.7-1.3); GLUCOSE,RANDOM 185 mg/dL (74-106)
--- NOTE | 2017-01-14 08:42 | PN ---
Progress Note (short form) - Note Progress Note: Attending Surgeon POD#1 No c/o;feels better VSS AF dressing in place WBC down to 15 IMP:improving PLAN Start dressing changes; continue present tx. Tristen Lemon MD FACS
--- NOTE | 2017-01-14 13:19 | PN ---
Progress Note (short form) - Note Progress Note: Dressing changed today after the pt was pre-medicated with pain mendications. Vital Signs Period Temp Pulse Resp BP Sys/Gilliam Pulse Ox Last 24 Hr 97.5 F-98.9 F 56-77 17-20 112-121/57-85 98-98 GEN: A&0x3, NAD Left perineal area: no erythema or driange noted. iodofrom packing removed and irrigated with 20cc NS. 1/2 inch iodoform packing replaced and 4x4 gauze tape applied. CBC, BMP 01/14/17 06:10 01/14/17 06:10 Microbiology 01/12/17 22:40 Urine - Urine Clean Catch Urine Culture - Final NO GROWTH OBTAINED 01/13/17 12:00 Abscess Wound Culture - Preliminary Strep Agalactiae Group B 01/13/17 12:00 Abscess Wound Culture - Preliminary Strep Agalactiae Group B 01/12/17 21:30 Blood - Peripheral Venous Blood Culture - Preliminary NO GROWTH OBTAINED AFTER 24 HOURS, INCUBATION TO CONTINUE FOR 4 DAYS. 01/12/17 21:30 Blood - Peripheral Venous Blood Culture - Preliminary NO GROWTH OBTAINED AFTER 24 HOURS, INCUBATION TO CONTINUE FOR 4 DAYS. A/P s/p left perineal I&D, POD#1 Dressing changed today, will order sitz baths and local wound care Cont IV abx transition to oral as per ID, awaiting final wound culture sensitivities
--- NOTE | 2017-01-14 13:59 | PN ---
Teaching Attending Note Name of Resident: Yong Gaming ATTENDING PHYSICIAN STATEMENT I saw and evaluated the patient. I reviewed the resident's note and discussed the case with the resident. I agree with the resident's findings and plan as documented. SUBJECTIVE:asymptomatic. states groin pain is controlled. denies CP, SOB, fever , chills, N/V/C/D OBJECTIVE: Last Vital Signs Temp Pulse Resp BP Pulse Ox 97.8 F 56 L 20 112/72 98 01/14/17 08:18 01/14/17 08:18 01/14/17 08:18 01/14/17 08:18 01/14/17 10:39 General NAD CV S1 S2 RRR no murmur/rub/gallop Lungs CTA B/L no wheezing/ralesr/rhonchi Skin +perineal wound with packing in place. area mildly tender, no active drainage or surrounding erythema ASSESSMENT AND PLAN: 51 yo M with no PMH presented to the ER complaining of left groin pain. 1. Sepsis secondary to left perineal abscess- s/p I&D 01/13. packing in place. spoke with surgery who will change packing today. will await Cx report for final abx selection. currently on Clinda and Zosyn day 2. ID and surgery on board. pain control. HIV pending 2. New onset DM- A1c 10.6. counseled on risks of uncontrolled sugars which include but not limited to blindness, early heart disease, renal failure and repeated infections which can lead to amputations. advised with proper diet, exercise and medication these could be prevented. counseled on need for close monitoring and PCP follow up on discharge. RN teaching on fs and insulin. nutritional eval. give levemir 5 units now. titrate to optimize sugar control 3. Obesity- BMI 30. counseled on diet and exercise. weight loss goal of 1 lb/ week 4. dvt ppx- hep sq 5. spoke with present at bedside, answered all questions. verbalized understanding and agreement
--- NOTE | 2017-01-14 14:27 | PN ---
Physical Exam: SUBJECTIVE: Patient seen and examined at bedside. No acute events over night. denies fever, chills, N/V/D/C, incision is clean and with no signs of inflammation. OBJECTIVE: Vital Signs Period Temp Pulse Resp BP Sys/Gilliam Pulse Ox Last 24 Hr 97.5 F-98.9 F 56-77 18-20 112-121/61-85 98-98 GENERAL: The patient is awake, alert, and fully oriented, in no acute distress. HEAD: Normal with no signs of trauma. EYES: PERRL, extraocular movements intact, sclera anicteric, conjunctiva clear. No ptosis. ENT: Ears normal, nares patent, oropharynx clear without exudates, moist mucous membranes. NECK: Trachea midline, full range of motion, supple. LUNGS: Breath sounds equal, clear to auscultation bilaterally, no wheezes, no crackles, no accessory muscle use. HEART: Regular rate and rhythm, S1, S2 without murmur, rub or gallop. ABDOMEN: Soft, nontender, nondistended, normoactive bowel sounds, no guarding, no rebound, no hepatosplenomegaly, no masses. EXTREMITIES: 2+ pulses, warm, well-perfused, no edema. NEUROLOGICAL: Cranial nerves II through XII grossly intact. Normal speech, gait not observed. PSYCH: Normal mood, normal affect. SKIN: Warm, dry, normal turgor, no rashes or lesions noted Laboratory Results - last 24 hr 01/13/17 01/13/17 01/13/17 17:22 17:28 18:34 WBC RBC Hgb Hct MCV MCH MCHC RDW Plt Count MPV Sodium Potassium Chloride Carbon Dioxide Anion Gap BUN Creatinine POC Glucometer 411 405 378 Random Glucose Hemoglobin A1c % Calcium 01/13/17 01/14/17 01/14/17 22:15 00:42 06:10 WBC 15.1 H RBC 3.91 L Hgb 12.3 Hct 36.2 MCV 92.7 MCH 31.5 MCHC 34.0 RDW 13.8 Plt Count 218 MPV 9.2 Sodium Potassium Chloride Carbon Dioxide Anion Gap BUN Creatinine POC Glucometer 263 195 Random Glucose Hemoglobin A1c % Calcium 01/14/17 01/14/17 01/14/17 06:10 06:40 08:30 WBC RBC Hgb Hct MCV MCH MCHC RDW Plt Count MPV Sodium 140 Potassium 4.0 Chloride 104 Carbon Dioxide 25 Anion Gap 11 BUN 16 D Creatinine 0.6 L POC Glucometer 212 Random Glucose 185 H Hemoglobin A1c % 10.6 H Calcium 8.3 L 01/14/17 11:14 WBC RBC Hgb Hct MCV MCH MCHC RDW Plt Count MPV Sodium Potassium Chloride Carbon Dioxide Anion Gap BUN Creatinine POC Glucometer 275 Random Glucose Hemoglobin A1c % Calcium Active Medications Generic Name Dose Route Start Last Admin Trade Name Freq PRN Reason Stop Dose Admin Acetaminophen 650 mg 01/13/17 12:36 Tylenol - PO Q4H PRN FEVER OR PAIN Fentanyl 50 mcg 01/13/17 12:36 Sublimaze Injection - IVPUSH 01/16/17 11:55 [id number] PRN PAIN Heparin Sodium (Porcine) 5,000 unit 01/13/17 14:00 01/14/17 06:40 Heparin - SQ 5,000 unit TID CHANEL Administration Clindamycin Phosphate 50 mls @ 100 mls/hr 01/13/17 18:00 01/14/17 10:29 Cleocin 300 Mg Premix Ivpb IVPB 100 mls/hr Q8H-IV CHANEL Administration Piperacillin Sod/Tazobactam 50 mls @ 100 mls/hr 01/13/17 15:00 01/14/17 10:36 Sod 3.375 gm/ Dextrose IVPB 100 mls/hr Q8H-IV CHANEL Administration Protocol Insulin Aspart 1 vial 01/13/17 18:00 01/14/17 11:54 Novolog Vial Sliding Scale - SQ 4 unit Q6HPO CHANEL Administration Protocol CBC, BMP 01/14/17 06:10 01/14/17 06:10 Microbiology 01/13/17 12:00 Abscess Wound Culture - Preliminary Strep Agalactiae Group B 01/13/17 12:00 Abscess Wound Culture - Preliminary Strep Agalactiae Group B 01/12/17 21:06 Groin Gram Stain - Final 01/12/17 21:06 Groin Wound Culture - Preliminary Strep Agalactiae Group B 01/12/17 22:40 Urine - Urine Clean Catch Urine Culture - Final NO GROWTH OBTAINED 01/12/17 21:30 Blood - Peripheral Venous Blood Culture - Preliminary NO GROWTH OBTAINED AFTER 24 HOURS, INCUBATION TO CONTINUE FOR 4 DAYS. 01/12/17 21:30 Blood - Peripheral Venous Blood Culture - Preliminary NO GROWTH OBTAINED AFTER 24 HOURS, INCUBATION TO CONTINUE FOR 4 DAYS. ASSESSMENT/PLAN: 51yo M with no significant PMH presents c/o Left groin abscess, admitted for sepsis 2/2 abscess. # Sepsis 2/2 Left groin abscess * leukocytosis, tachycardia, abscess infection * DC IVFs * Vancomycin, Zosyn given in ED * contiue zosyn, DC clindamycin 300 mg IVBP Q8hr per ID * ID on the board * CT pelvis with IV contrast show supperficial abscess * Surgery Consult , I&D, was done yesterday * Tylenol 650mg q4hr prn for pain or fever, OXycodone 10 mg Q8hr IVBP * type and screen, coags, repeat lactic acid * HIV screening test pending # hyperglycemia * 2/2 infection vs unknown hx of DM * hgba1c * BGM q6hr * Insuline sliding scale * Diabetic diet * patient education * Levemir 5 units at bed time # FEN * Fluids: DC fluids * Electrolytes: wnl, continue to monitor * Nutrition: advance to diabetic diet after the I&D #Prophylaxis * DVT: Heparin 5,000U q8hr * GI : No needed Admit to Med-Surg. Visit type - Emergency Visit Emergency Visit: Yes ED Registration Date: 01/12/17 Care time: The patient presented to the Emergency Department on the above date and was hospitalized for further evaluation of their emergent condition. - New Patient This patient is new to me today: No - Critical Care Critical Care patient: No
--- NOTE | 2017-01-14 16:38 | PN ---
Progress Note, Physician History of Present Illness: patient doing well feels much better - Current Medication List Current Medications: Active Medications Acetaminophen (Tylenol -) 650 mg PO Q4H PRN PRN Reason: FEVER OR PAIN Fentanyl (Sublimaze Injection -) 50 mcg IVPUSH [id number] PRN PRN Reason: PAIN Stop: 01/16/17 11:55 Heparin Sodium (Porcine) (Heparin -) 5,000 unit SQ TID CHANEL Last Admin: 01/14/17 14:45 Dose: Not Given Clindamycin Phosphate (Cleocin 300 Mg Premix Ivpb) 50 mls @ 100 mls/hr IVPB Q8H -IV CHANEL Last Admin: 01/14/17 10:29 Dose: 100 mls/hr Piperacillin Sod/Tazobactam (Sod 3.375 gm/ Dextrose) 50 mls @ 100 mls/hr IVPB Q8H-IV CHANEL PRN Reason: Protocol Last Admin: 01/14/17 10:36 Dose: 100 mls/hr Insulin Aspart (Novolog Vial Sliding Scale -) 1 vial SQ Q6HPO CHANEL PRN Reason: Protocol Last Admin: 01/14/17 11:54 Dose: 4 unit Insulin Detemir (Levemir Vial) 5 units SQ HS CHANEL - Objective Vital Signs: Vital Signs Temperature 98.2 F 01/14/17 15:42 Pulse Rate 55 L 01/14/17 15:42 Respiratory Rate 20 01/14/17 15:42 Blood Pressure 111/65 01/14/17 15:42 O2 Sat by Pulse Oximetry (%) 98 01/14/17 10:39 Constitutional: Yes: No Distress, Calm Cardiovascular: Yes: Regular Rate and Rhythm Respiratory: Yes: Regular, CTA Bilaterally Gastrointestinal: Yes: Normal Bowel Sounds, Soft Genitourinary: Yes: Other (scrotal dressing in place dressing changed) Musculoskeletal: Yes: WNL Extremities: Yes: WNL Neurological: Yes: Alert, Oriented Psychiatric: Yes: Alert, Oriented Labs: CBC, BMP 01/14/17 06:10 01/14/17 06:10 INR, PTT INR 1.21 (0.82-1.09) H 01/13/17 06:45 Assessment/Plan ASSESSMENT/PLAN: 51yo M with no significant PMH presents c/o Left groin abscess, admitted for sepsis 2/2 abscess. 1) left groin abscess leukocytosis hyperglycemia plan continue zosyn will stop clinda await for sensitivites' rest as per primary
[2017-01-14] MEDS: ACETAMINOPHEN 325 MG TABLET (FP) PO PRN (18:24)
[2017-01-14] MEDS: INSULIN DETEMIR 100 UNITS/ML MDV SQ SCH (22:48)
[2017-01-15] MEDS: INSULIN SLIDING SCALE (NOVOLOG) 1 VIAL SQ SCH ×4 (00:58→17:56)
[2017-01-15] MEDS ORDERED: PIPERACILLIN/TAZOBACTAM 3.375 GM VIAL IVPB ONE ×3 (02:06→17:14)
[2017-01-15] MEDS ORDERED: DEXTROSE 5%-WATER - 50 ML IVPB ONE ×3 (02:06→17:14)
[2017-01-15] MEDS: PIPERACILLIN/TAZOB 3.375 GM 3.375 GM in DEXTROSE 5%-WATER - 50 ML IVPB SCH ×3 (02:22→17:57)
[2017-01-15] MEDS: ACETAMINOPHEN 325 MG TABLET (FP) PO PRN ×2 (02:43→09:31)
[2017-01-15] MEDS: HEPARIN NA (PORCINE) 5,000 UNITS/ML 1ML VIAL SQ SCH ×3 (06:20→22:30)
[2017-01-15 07:33] LABS: BASOPHIL 0.5 % (0-2.0); EOSINOPHIL 1.3 % (0-4.5); MCH 31.3 pg (25.7-33.7); MCHC 33.6 g/dl (32.0-35.9); MEAN CELL VOLUME 93.2 fl (80-96); MEAN PLT VOLUME 9.9 fl (7.5-11.1); NEUTROPHILS 51.4 % (42.8-82.8); PLATELET COUNT 249 K/MM3 (134-434); RDW 13.7 % (11.9-15.9); WHITE BLOOD COUNT 10.8 K/mm3 (4.0-10.0)
--- NOTE | 2017-01-15 14:58 | PN ---
Progress Note, Physician History of Present Illness: patient doing well feels much better no issues - Current Medication List Current Medications: Active Medications Acetaminophen (Tylenol -) 650 mg PO Q4H PRN PRN Reason: FEVER OR PAIN Last Admin: 01/15/17 09:31 Dose: 650 mg Fentanyl (Sublimaze Injection -) 50 mcg IVPUSH [id number] PRN PRN Reason: PAIN Stop: 01/16/17 11:55 Heparin Sodium (Porcine) (Heparin -) 5,000 unit SQ TID CHANEL Last Admin: 01/15/17 06:20 Dose: 5,000 unit Piperacillin Sod/Tazobactam (Sod 3.375 gm/ Dextrose) 50 mls @ 100 mls/hr IVPB Q8H-IV CHANEL PRN Reason: Protocol Last Admin: 01/15/17 09:33 Dose: 100 mls/hr Insulin Aspart (Novolog Vial Sliding Scale -) 1 vial SQ Q6HPO CHANEL PRN Reason: Protocol Last Admin: 01/15/17 11:31 Dose: Not Given Insulin Detemir (Levemir Vial) 5 units SQ HS CHANEL Last Admin: 01/14/17 22:48 Dose: 5 units - Objective Vital Signs: Vital Signs Temperature 98.3 F 01/15/17 14:46 Pulse Rate 60 01/15/17 14:46 Respiratory Rate 18 01/15/17 10:00 Blood Pressure 130/87 01/15/17 14:46 O2 Sat by Pulse Oximetry (%) 98 01/15/17 09:00 Constitutional: Yes: No Distress, Calm Cardiovascular: Yes: Regular Rate and Rhythm Respiratory: Yes: Regular, CTA Bilaterally Gastrointestinal: Yes: Normal Bowel Sounds, Soft Genitourinary: Yes: Scrotal Edema, Other Musculoskeletal: Yes: WNL Extremities: Yes: WNL Neurological: Yes: Alert, Oriented Psychiatric: Yes: Alert, Oriented Labs: CBC, BMP 01/15/17 06:05 01/14/17 06:10 INR, PTT INR 1.21 (0.82-1.09) H 01/13/17 06:45 Assessment/Plan ASSESSMENT/PLAN: 51yo M with no significant PMH presents c/o Left groin abscess, admitted for sepsis 2/2 abscess. 1) left groin abscess leukocytosis hyperglycemia plan continue zosyn wbc near normal
--- NOTE | 2017-01-15 16:10 | PN ---
Teaching Attending Note Name of Resident: Yong Gaming ATTENDING PHYSICIAN STATEMENT I saw and evaluated the patient. I reviewed the resident's note and discussed the case with the resident. I agree with the resident's findings and plan as documented. SUBJECTIVE:pain has resolved. denies Cp, SOB, fever, chills, N/V/C/D OBJECTIVE: Last Vital Signs Temp Pulse Resp BP Pulse Ox 98.3 F 60 18 130/87 98 01/15/17 14:46 01/15/17 14:46 01/15/17 10:00 01/15/17 14:46 01/15/17 09:00 General NAD ASSESSMENT AND PLAN: 51 yo M with no PMH presented to the ER complaining of left groin pain. 1. Sepsis secondary to left perineal abscess- s/p I&D 01/13. packing [address]. healing well. c&s back with duong-sensitive Group B strep. on Zosyn day 3. as per ID can go home once leukocyotsis normalized. HIV negative 2. New onset DM- A1c 10.6. improved. on levemir 5 units HS. titrate to optimize sugar control 3. Obesity- BMI 30. counseled on diet and exercise. weight loss goal of 1 lb/ week 4. dvt ppx- hep sq 5. spoke with present at bedside, answered all questions. verbalized understanding and agreement. d/c planning in AM
--- NOTE | 2017-01-15 17:29 | PN ---
Physical Exam: SUBJECTIVE: Patient seen and examined OBJECTIVE: Vital Signs Period Temp Pulse Resp BP Sys/Gilliam Pulse Ox Last 24 Hr 97.7 F-98.6 F 56-67 16-20 107-130/62-87 98-98 GENERAL: The patient is awake, alert, and fully oriented, in no acute distress. HEAD: Normal with no signs of trauma. EYES: PERRL, extraocular movements intact, sclera anicteric, conjunctiva clear. No ptosis. ENT: Ears normal, nares patent, oropharynx clear without exudates, moist mucous membranes. NECK: Trachea midline, full range of motion, supple. LUNGS: Breath sounds equal, clear to auscultation bilaterally, no wheezes, no crackles, no accessory muscle use. HEART: Regular rate and rhythm, S1, S2 without murmur, rub or gallop. ABDOMEN: Soft, nontender, nondistended, normoactive bowel sounds, no guarding, no rebound, no hepatosplenomegaly, no masses. EXTREMITIES: 2+ pulses, warm, well-perfused, no edema. NEUROLOGICAL: Cranial nerves II through XII grossly intact. Normal speech, gait not observed. PSYCH: Normal mood, normal affect. SKIN: Warm, dry, normal turgor, no rashes or lesions noted Laboratory Results - last 24 hr 01/13/17 01/14/17 01/14/17 19:30 17:35 22:45 WBC RBC Hgb Hct MCV MCH MCHC RDW Plt Count MPV Neutrophils % Lymphocytes % Monocytes % Eosinophils % Basophils % POC Glucometer 239 270 HIV 1&2 Ag/Ab, 4th Gen Non reactive 01/15/17 01/15/17 01/15/17 06:05 06:17 11:27 WBC 10.8 H RBC 3.93 L Hgb 12.3 Hct 36.7 MCV 93.2 MCH 31.3 MCHC 33.6 RDW 13.7 Plt Count 249 MPV 9.9 Neutrophils % 51.4 D Lymphocytes % 38.1 D Monocytes % 8.7 Eosinophils % 1.3 D Basophils % 0.5 POC Glucometer 154 199 HIV 1&2 Ag/Ab, 4th Gen Active Medications Generic Name Dose Route Start Last Admin Trade Name Freq PRN Reason Stop Dose Admin Acetaminophen 650 mg 01/13/17 12:36 01/15/17 09:31 Tylenol - PO 650 mg Q4H PRN Administration FEVER OR PAIN Fentanyl 50 mcg 01/13/17 12:36 Sublimaze Injection - IVPUSH 01/16/17 11:55 [id number] PRN PAIN Heparin Sodium (Porcine) 5,000 unit 01/13/17 14:00 01/15/17 15:09 Heparin - SQ 5,000 unit TID CHANEL Administration Piperacillin Sod/Tazobactam 50 mls @ 100 mls/hr 01/13/17 15:00 01/15/17 09:33 Sod 3.375 gm/ Dextrose IVPB 100 mls/hr Q8H-IV CHANEL Administration Protocol Insulin Aspart 1 vial 01/13/17 18:00 01/15/17 11:31 Novolog Vial Sliding Scale - SQ Not Given Q6HPO [facility] Protocol Insulin Detemir 5 units 01/14/17 22:00 01/14/17 22:48 Levemir Vial SQ 5 units HS CHANEL Administration Microbiology 01/13/17 12:00 Abscess Wound Culture - Final Strep Agalactiae Group B 01/13/17 12:00 Abscess Wound Culture - Final Strep Agalactiae Group B 01/12/17 21:06 Groin Gram Stain - Final 01/12/17 21:06 Groin Wound Culture - Final Strep Agalactiae Group B Staphylococcus Coagulase Neg 01/12/17 21:30 Blood - Peripheral Venous Blood Culture - Preliminary NO GROWTH OBTAINED AFTER 48 HOURS, INCUBATION TO CONTINUE FOR 3 DAYS. 01/12/17 21:30 Blood - Peripheral Venous Blood Culture - Preliminary NO GROWTH OBTAINED AFTER 48 HOURS, INCUBATION TO CONTINUE FOR 3 DAYS. 01/12/17 22:40 Urine - Urine Clean Catch Urine Culture - Final NO GROWTH OBTAINED CBC, BMP 01/15/17 06:05 01/14/17 06:10 ASSESSMENT/PLAN: 51yo M with no significant PMH presents c/o Left groin abscess, admitted for sepsis 2/2 abscess. # Sepsis 2/2 Left groin abscess * leukocytosis, tachycardia, abscess infection * DC IVFs * Vancomycin, Zosyn given in ED * contiue zosyn, DC clindamycin 300 mg IVBP Q8hr per ID * ID on the board * CT pelvis with IV contrast show supperficial abscess * Surgery Consult , I&D, was done yesterday * Tylenol 650mg q4hr prn for pain or fever, OXycodone 10 mg Q8hr IVBP * type and screen, coags, repeat lactic acid * HIV screening test pending # New Onset DM * Hgb A1c 10.9 * 2/2 infection vs unknown hx of DM * hgba1c * BGM q6hr * Insuline sliding scale * Diabetic diet * patient education * Levemir 5 units at bed time ,titrate to optimize sugar control # Obesity * BMI 30 , * patient education about weight loss and exercise, obesity complications was discussed with the patient . # FEN * Fluids: DC fluids * Electrolytes: wnl, continue to monitor * Nutrition: advance to diabetic diet after the I&D #Prophylaxis * DVT: Heparin 5,000U q8hr * GI : No needed Admit to Med-Surg. Consider Dc in AM Visit type - Emergency Visit Emergency Visit: Yes ED Registration Date: 01/12/17 Care time: The patient presented to the Emergency Department on the above date and was hospitalized for further evaluation of their emergent condition. - New Patient This patient is new to me today: No - Critical Care Critical Care patient: No - Discharge Referral Referred to [facility] Med P.C.: No
[2017-01-15] MEDS ORDERED: oxyCODONE HCL 5 MG TABLET PO PRN (18:58)
[2017-01-15] MEDS: INSULIN DETEMIR 100 UNITS/ML MDV SQ SCH (22:30)
[2017-01-16] MEDS: INSULIN SLIDING SCALE (NOVOLOG) 1 VIAL SQ SCH ×3 (00:10→13:02)
[2017-01-16] MEDS ORDERED: PIPERACILLIN/TAZOBACTAM 3.375 GM VIAL IVPB ONE ×2 (00:57→10:02)
[2017-01-16] MEDS ORDERED: DEXTROSE 5%-WATER - 50 ML IVPB ONE ×2 (00:58→10:02)
[2017-01-16] MEDS: PIPERACILLIN/TAZOB 3.375 GM 3.375 GM in DEXTROSE 5%-WATER - 50 ML IVPB SCH ×2 (01:24→10:05)
[2017-01-16] MEDS: HEPARIN NA (PORCINE) 5,000 UNITS/ML 1ML VIAL SQ SCH ×2 (06:10→13:15)
[2017-01-16 07:33] LABS: MCHC 33.4 g/dl (32.0-35.9); MEAN CELL VOLUME 92.7 fl (80-96); MEAN PLT VOLUME 9.6 fl (7.5-11.1); PLATELET COUNT 277 K/MM3 (134-434); RDW 13.7 % (11.9-15.9); WHITE BLOOD COUNT 12.1 K/mm3 (4.0-10.0)
--- NOTE | 2017-01-16 11:01 | DS ---
Physical Exam: SUBJECTIVE: Patient seen and examined [facility]. he is doing well, no fever, chills were reported overnight. Wound is clean and does not seem infected. he denies any chest pain , SOB, abdominal pain, D/C/N/v. OBJECTIVE: Vital Signs Period Temp Pulse Resp BP Sys/Gilliam Pulse Ox Last 24 Hr 97.7 F-98.8 F 60-67 14-20 117-135/69-92 98 PHYSICAL EXAM GENERAL: The patient is awake, alert, and fully oriented, in no acute distress. HEAD: Normal with no signs of trauma. EYES: PERRL, extraocular movements intact, sclera anicteric, conjunctiva clear. ENT: Ears normal, nares patent, oropharynx clear without exudates, moist mucous membranes. NECK: Trachea midline, full range of motion, supple. LUNGS: Breath sounds equal, clear to auscultation bilaterally, no wheezes, no crackles, no accessory muscle use. HEART: Regular rate and rhythm, S1, S2 without murmur, rub or gallop. ABDOMEN: Soft, nontender, nondistended, normoactive bowel sounds, no guarding, no rebound,wound is packed. EXTREMITIES: 2+ pulses, warm, well-perfused, no edema. NEUROLOGICAL: good mentation PSYCH: Normal mood, normal affect. SKIN: Warm, dry, no rashes or lesions noted. LABS Laboratory Results - last 24 hr 01/15/17 01/15/17 01/15/17 11:27 17:55 22:28 WBC RBC Hgb Hct MCV MCH MCHC RDW Plt Count MPV Neutrophils % Lymphocytes % POC Glucometer 199 177 159 01/16/17 01/16/17 06:09 06:20 WBC 12.1 H RBC 4.18 Hgb 13.0 Hct 38.8 MCV 92.7 MCH 31.0 MCHC 33.4 RDW 13.7 Plt Count 277 MPV 9.6 Neutrophils % No Result Required. Lymphocytes % No Result Required. POC Glucometer 134 HOSPITAL COURSE: Date of Admission:01/12/17 Date of Discharge: 01/16/17 Mr. Goode is a 51 yo M with no PMH presented to the ER complaining of left groin pain. he was found to have sepsis secondary to left perineal abscess, I&D was done on 01/13/2017 and packed and is healing well. c&s back with duong-sensitive Group B strep. completed 5 days of Zosyn at the hospital and will be discharged with Augmentin 875 BID for the next 7 days. taught how to do daily dressing changes. he will follow up with surgeon next week. Patient was found to have new onset DM with A1c 10.6.we put him on levemir 5 units HS. well controlled. has no insurance and will have difficulty affording insulin. will send on only levemir and not sliding scale as has not required any coverage. will f/u with PCP next week for insulin adjustment. instructed to document BGM Patient has obesity with BMI 30. counseled on diet and exercise with weight loss goal of 1 lb/week He was treated with heparin SQ for dvt ppx Minutes to complete discharge: 30 Discharge Summary Reason For Visit: ABSCESS OR CELLULITIS OF GROIN Current Active Problems Abscess of left groin (Acute) Abscess or cellulitis of groin (Acute) Condition: Stable - Instructions Diet, Activity, Other Instructions: Please take your medicine as prescribed . Please follow up with your primary care physician Dr. Amberly Beach within a week Please follow up with the surgeon within a week Please follow diabetic diet , lose weight , exercise daily. Please check your blood sugar twice daily in morning and at bed time, and document the numbers , bring it with you to your appointment. Please take insulin levemir 5 units at bed time, Please take the antibiotics Augmentin twice daily for the next 7 days. please complete the whole course. Please change the dressing on your wound daily as they show you at the hospital. If you develop fever, chills or your symptoms worsen come back to emergency as soon as possible Referrals: Ashu Almaguer MD [Staff Physician] - Tristen Lemon MD [Staff Physician] - 1 Week Disposition: HOME - Home Medications Comprehensive Discharge Medication List: Ambulatory Orders NK [No Known Home Medication] 01/12/17 This patient is new to me today: No Emergency Visit: Yes ED Registration Date: 01/12/17 Care time: The patient presented to the Emergency Department on the above date and was hospitalized for further evaluation of their emergent condition. Critical Care patient: No - Discharge Referral Referred to [facility] Med P.C.: No
--- NOTE | 2017-01-16 11:55 | PN ---
Teaching Attending Note Name of Resident: Yong Gaming ATTENDING PHYSICIAN STATEMENT I saw and evaluated the patient. I reviewed the resident's note and discussed the case with the resident. I agree with the resident's findings and plan as documented. SUBJECTIVE:asymptomatic. requesting to go home. denies CP, SOB, fever, chills, difficulty toileting, N/V/C/D OBJECTIVE: Last Vital Signs Temp Pulse Resp BP Pulse Ox 97.7 F 65 16 119/73 98 01/16/17 09:37 01/16/17 09:37 01/16/17 09:37 01/16/17 09:37 01/15/17 22:00 General NAD ASSESSMENT AND PLAN: 51 yo M with no PMH presented to the ER complaining of left groin pain. 1. Sepsis secondary to left perineal abscess- s/p I&D 01/13. packing in place. healing well. c&s back with duong-sensitive Group B strep. on Zosyn day 4. as per ID can d/c home today on Augmentin for additional 7 days. taught how to do daily dressing changes. will f/u with surgeon next week. 2. New onset DM- A1c 10.6. improved. on levemir 5 units HS. well controlled. has no insurance and will have difficulty affording insulin. will send on only levemir and not sliding scale as has not required any coverage. will f/u with PMD next week for insulin adjustment. instructed to document BGM 3. Obesity- BMI 30. counseled on diet and exercise. weight loss goal of 1 lb/ week 4. dvt ppx- hep sq 5. spoke with present at bedside, answered all questions. verbalized understanding and agreement. d/c home
[2017-01-16 12:05] LABS: METAMYELOCYTE 1 % (0-2); MYELOCYTE 1 % (0-2); PLATELET ESTIMATE ADEQUATE (NORMAL); TOTAL CELLS COUNTED 100
--- NOTE | 2017-01-16 14:17 | OP ---
DATE OF OPERATION: 01/13/2017 PREOPERATIVE DIAGNOSIS: Perineal/medial thigh abscess. POSTOPERATIVE DIAGNOSIS: Perineal/medial thigh abscess. PROCEDURE: Incision and drainage of abscess. SURGEON: Tristen Lemon MD ANESTHESIA: General. OPERATIVE FINDINGS: There was soft tissue abscess involving the perineum to the left of the midline and extending to the medial thigh on the left. The rest of the findings were unremarkable. DESCRIPTION OF PROCEDURE: The patient was placed on the operating table in supine position, and after the induction of general anesthesia, the patient was placed in the dorsal lithotomy position, and the perineum and genitalia were prepped and draped in a sterile fashion. A time-out was taken, and then, incision was made over the area of fluctuance using a scalpel. Purulent drainage was sent for culture and sensitivity. All loculations were broken up using blunt dissection, and the cavity copiously irrigated with a mixture of 50% saline and 50% peroxide. Hemostasis was secured with electrocautery, and the wound was packed with 1-inch Iodoform gauze followed by dry sterile dressings, and the procedure was terminated at this point. Then, the patient transferred to the post-anesthesia care unit in stable condition, awake and alert. ESTIMATED BLOOD LOSS: Minimal. DRAINS: None. SPECIMENS: Culture and sensitivity to Microbiology. I, Tristen Lemon MD, was physically present in the operating room from the time the patient was placed on the operating table until he was transferred to the post-anesthesia care unit in my accompaniment. MD JOHN Manuel/[id number]
[2017-01-16 14:37] VITALS: BP 112/71; PULSE 59; TEMP 97.9
--- NOTE | 2017-01-16 15:43 | PN ---
Progress Note, Physician History of Present Illness: doing well no issues - Current Medication List Current Medications: Active Medications Acetaminophen (Tylenol -) 650 mg PO Q4H PRN PRN Reason: FEVER OR PAIN Last Admin: 01/15/17 09:31 Dose: 650 mg Heparin Sodium (Porcine) (Heparin -) 5,000 unit SQ TID CHANEL Last Admin: 01/16/17 13:15 Dose: 5,000 unit Piperacillin Sod/Tazobactam (Sod 3.375 gm/ Dextrose) 50 mls @ 100 mls/hr IVPB Q8H-IV CHANEL PRN Reason: Protocol Last Admin: 01/16/17 10:05 Dose: 100 mls/hr Insulin Aspart (Novolog Vial Sliding Scale -) 1 vial SQ Q6HPO CHANEL PRN Reason: Protocol Last Admin: 01/16/17 13:02 Dose: Not Given Insulin Detemir (Levemir Vial) 5 units SQ HS CHANEL Last Admin: 01/15/17 22:30 Dose: 5 units Oxycodone HCl (Roxicodone -) 10 mg PO Q6H PRN PRN Reason: PAIN Last Admin: 01/15/17 19:24 Dose: 10 mg - Objective Vital Signs: Vital Signs Temperature 97.9 F 01/16/17 14:36 Pulse Rate 59 L 01/16/17 14:36 Respiratory Rate 16 01/16/17 09:37 Blood Pressure 112/71 01/16/17 14:36 O2 Sat by Pulse Oximetry (%) 99 01/16/17 09:00 Constitutional: Yes: No Distress, Calm Cardiovascular: Yes: Regular Rate and Rhythm Respiratory: Yes: Regular, CTA Bilaterally Gastrointestinal: Yes: Normal Bowel Sounds, Soft Musculoskeletal: Yes: WNL Extremities: Yes: WNL Wound/Incision: Yes: Dressing Dry and Intact Neurological: Yes: Alert, Oriented Labs: CBC, BMP 01/16/17 06:20 01/14/17 06:10 INR, PTT INR 1.21 (0.82-1.09) H 01/13/17 06:45 Assessment/Plan ASSESSMENT/PLAN: 51yo M with no significant PMH presents c/o Left groin abscess, admitted for sepsis 2/2 abscess. 1) left groin abscess leukocytosis hyperglycemia plan patient can be send home on augmentin for 7 more days if patient spikes any fever then should see his doctor continue wound care rest as per primary team
== END 2017-01-16 17:36 | disposition home or self-care (01) | DRG 710 ==
LOC: JER 19:33 → JERBED 23:24 → UNDOADMIN 23:31 → J5S 01-13 01:58
PROVIDERS: ADMIT Internal Medicine; ATTEND Internal Medicine
PROC: 0J9B0ZZ Drainage of Perineum Subcutaneous Tissue and Fascia, Open Approach (ICD-10-PCS; principal; 2017-01-12)
DX: A41.9 Sepsis, unspecified organism (principal); E11.65 Type 2 diabetes mellitus with hyperglycemia; L03.315 Cellulitis of perineum; B95.1 Streptococcus, group B, as the cause of diseases classified elsewhere; L02.214 Cutaneous abscess of groin; Z68.30 Body mass index [BMI] 30.0-30.9, adult; E66.9 Obesity, unspecified; L02.224 Furuncle of groin; F17.210 Nicotine dependence, cigarettes, uncomplicated
CPT/HCPCS: 36415; 71010-TC; 72193-TC; 76882; 80048; 80053; 81003; 81015; 83036; 83605; 83735; 84100; 84484; 85025; 85027; 85610; 85730; 86850; 86900; 86901; 87040; 87070; 87086; 87186; 87205; 93005; 93010; 94760; 99285-25; J1644

== ENCOUNTER 2017-08-23 10:44 | Emergency (ER) | payer OTHER ==
[2017-08-23 10:57] VITALS: BP 137/80; PULSE 57; TEMP 97.8; BMI 29.9
[2017-08-23] MEDS ORDERED: KETOROLAC TROMETHAMINE 30 MG/1 ML VIAL IM ONE (11:28)
[2017-08-23] MEDS ORDERED: diazePAM 5 MG TABLET PO ONE (11:28)
[2017-08-23] MEDS ORDERED: diazePAM 5 MG TABLET ONE (11:30)
[2017-08-23] MEDS ORDERED: KETOROLAC TROMETHAMINE 30 MG/1 ML VIAL ONE (11:30)
--- NOTE | 2017-08-23 11:32 | PDOC ---
History of Present Illness - General Chief Complaint: Back Pain Stated Complaint: BACK PAIN Time Seen by Provider: 08/23/17 11:01 History Source: Patient Exam Limitations: No Limitations - History of Present Illness Initial Comments: 08/23/17 11:28 CHIEF COMPLAINT: Atraumatic lower back pain for 2 weeks HISTORY OF PRESENT ILLNESS:51-year-old man, Nonradiating pain, no neurosensory deficits, no bowel or bladder difficulty incontinence or urinary retention, no saddle anesthesia, no footdrop. No history of IVDU or hisotry of cancer. REVIEW OF SYSTEMS: GENERAL: Afebrile, denies any weakness RESPIRATORY: No cough, wheezing, or hemoptysis. CARDIAC: No chest pain or shortness of breath MUSCULOSKELETAL: Pain to generalized lower back. No point tenderness. Pain worse on right than left. SKIN : No erythema, no bruising, no deformity. GI/: Denies any abdominal pain, no urinary difficulty, incontinence or urinary retention. RECTAL: Denies any difficulty this A.m. NEUROLOGICAL: Denies any numbness or tingling. No neurosensory deficits. PHYSICAL EXAM: GENERAL: The patient is awake, alert, and fully oriented, in no acute distress. RESPIRATORY: Lungs clear bilaterally, no rhonchi wheezes or crackles CARDIAC: S1-S2 audible, no murmur rub or gallop MUSCULOSKELETAL: Pain to generalized lower back, nonradiating, no tingling or sensory deficit. Less than 2 second cap refill, +2 pedal pulses. GI/: Abdomen soft, nontender, nondistended. No rebound tenderness. No masses palpable. MUSCULOSKELETAL: No spinal point tenderness. Normal reflexive and no deficits to sensation or strength. RECTAL: Deferred patient with no neurological findings SKIN: Warm, Dry, normal turgor, no erythema, no edema no bruising. Past History - Past Medical History Allergies/Adverse Reactions: Allergies Allergy/AdvReac Type Severity Reaction Status Date / Time No Known Allergies Allergy Verified 08/23/17 10:53 Home Medications: Ambulatory Orders Insulin (Levemir) [Levemir Vial] 5 units SQ HS #100 ml 01/16/17 oxyCODONE HCL [Roxicodone -] 5 mg PO Q6H PRN #20 tablet MDD 4 tab 01/16/17 Methocarbamol [Robaxin -] 1,500 mg PO Q8H #18 tablet 08/23/17 COPD: No Other medical history: DENIES. - Suicide/Smoking/Psychosocial Hx Smoking History: Current every day smoker Have you smoked in the past 12 months: Yes Number of Cigarettes Smoked Daily: 10 Information on smoking cessation initiated: Yes 'Breaking Loose' booklet given: 08/23/17 Hx Alcohol Use: No Drug/Substance Use Hx: No Substance Use Type: None *Physical Exam - Vital Signs Last Vital Signs Temp Pulse Resp BP Pulse Ox 97.8 F 57 L 19 137/80 100 08/23/17 10:53 08/23/17 10:53 08/23/17 10:53 08/23/17 10:53 08/23/17 10:53 Medical Decision Making - Medical Decision Making 08/23/17 11:30 A/P: 51-year-old male with 2 weeks of atraumatic lower back pain Palpable muscle spasm noted to the right paraspinous region immediately superior to the iliosacral joint Full sensation noted to bilateral lower extremities Able to perform straight leg raises bilaterally without any difficulty Toradol 30 mg IM Valium 5 mg orally Reassess 08/23/17 11:47 Back pain currently 10 after receiving medication. Was 9/10 prior to medication. I will discharge the patient home with prescription for Robaxin. *DC/Admit/Observation/Transfer Diagnosis at time of Disposition: Lower back pain Qualifiers: Chronicity: acute Back pain laterality: midline Sciatica presence: without sciatica Qualified Code(s): M54.5 - Low back pain - Discharge Dispostion Disposition: HOME Condition at time of disposition: Fair Decision to Admit order: No - Prescriptions Prescriptions: Methocarbamol [Robaxin -] 1,500 mg PO Q8H #18 tablet - Referrals Referrals: Yong Bojorquez [Primary Care Provider] - - Patient Instructions Printed Discharge Instructions: DI for Low Back Pain Additional Instructions: Take Tylenol or Motrin as needed for pain. Follow manufacturers instructions for appropriate dosage. take Robaxin as prescribed Warm moist heat applied to your back may help alleviate pain. Return to emergency department for discoloration of the foot, numbness or tingling to the foot, worsening pain, or any other concerns. Thank you very much for choosing us to provide your emergent healthcare needs. - Post Discharge Activity Forms/Work/School Notes: Back to Work
== END 2017-08-23 11:51 | disposition home or self-care (01) ==
LOC: JERFT 10:44
PROC: 3E0233Z Introduction of Anti-inflammatory into Muscle, Percutaneous Approach (ICD-10-PCS; principal; 2017-08-23)
DX: M62.830 Muscle spasm of back (principal); M54.5 Low back pain; E11.9 Type 2 diabetes mellitus without complications; Z79.4 Long term (current) use of insulin; F17.210 Nicotine dependence, cigarettes, uncomplicated
CPT/HCPCS: 96372; 99281-25

== ENCOUNTER 2018-07-06 09:53 | Day surgery (SDC) | payer OTHER | END 2018-07-06 11:14 | disposition home or self-care (01) | LOC: JASU-ENDO 09:53 ==

== ENCOUNTER 2018-08-03 10:01 | Day surgery (SDC) | payer OTHER ==
[2018-08-02 11:12] VITALS: BMI 31.3
[2018-08-03 11:46] VITALS: TEMP 97
[2018-08-03 12:15] VITALS: PULSE 57
[2018-08-03 12:33] VITALS: BP 116/76
--- NOTE | 2018-08-04 10:18 | PATH ---
Surgical Pathology Report Patient Name: ROLAND ADAMS [facility]. Rec. #: [id number] /Age/Gender: 1965 (Age: 52) / M Account: [id number] Location: [facility]-ENDOSCOPY Taken: 08/03/2018 Received: 08/03/2018 Reported: 08/04/2018 Physicians: Jerzy Marmolejo D.O. Specimen(s) Received A: SIGMOID B: PROXIMAL TRANSVERSE COLON C: LARGER PROXIMAL TRANSVERSE COLON D: RIGHT COLON Clinical History Colon cancer screening Postoperative diagnosis: Polyps, hemorrhoids Final Diagnosis A. COLON, SIGMOID, POLYPECTOMY: TUBULAR ADENOMA. STALK MARGIN APPEARS FREE OF ADENOMATOUS CHANGES. B. COLON, PROXIMAL TRANSVERSE, BIOPSY: THREE PORTIONS OF TUBULAR ADENOMA. C. COLON, LARGER PROXIMAL TRANSVERSE POLYP, POLYPECTOMY: TUBULAR ADENOMA D. COLON, RIGHT, BIOPSY: TUBULAR ADENOMA Electronically Signed Karlos Arias M.D. Gross Description A. Received in formalin, labeled "sigmoid colon polyp" is a [place], polypoid portion of soft tissue measuring 0.6 cm. in greatest dimension. The specimen is submitted in toto in one cassette. B. Received in formalin, labeled "proximal transverse colon polyp" are 3 [place], irregular portions of soft tissue ranging from 0.2-0.5 cm. in greatest dimension. The specimens are submitted in toto in one cassette. C. Received in formalin, labeled "larger proximal transverse colon polyp" is a [place], irregular portion of soft tissue measuring 0.5 cm. in greatest dimension. The specimen is submitted in toto in one cassette. D. Received in formalin, labeled "biopsy right colon polyp" are 2 [place], irregular portions of soft tissue averaging 0.2 cm. in greatest dimension. The specimens are submitted in toto in one cassette.* DL/08/03/2018 saudi/08/03/2018
== END 2018-08-03 12:40 | disposition home or self-care (01) ==
LOC: JASU-ENDO 10:01
PROVIDERS: ATTEND Internal Medicine Gastroenterology
PROC: 0DBL8ZX Excision of Transverse Colon, Via Natural or Artificial Opening Endoscopic, Diagnostic (ICD-10-PCS; 2018-08-03)
PROC: 0DBF8ZX Excision of Right Large Intestine, Via Natural or Artificial Opening Endoscopic, Diagnostic (ICD-10-PCS; 2018-08-03)
PROC: 0DBN8ZX Excision of Sigmoid Colon, Via Natural or Artificial Opening Endoscopic, Diagnostic (ICD-10-PCS; principal; 2018-08-03 11:00)
DX: Z12.11 Encounter for screening for malignant neoplasm of colon (principal); D12.5 Benign neoplasm of sigmoid colon; D12.3 Benign neoplasm of transverse colon; K64.8 Other hemorrhoids; I10 Essential (primary) hypertension; E11.9 Type 2 diabetes mellitus without complications; Z79.84 Long term (current) use of oral hypoglycemic drugs
CPT/HCPCS: 88305-TC

== ENCOUNTER 2020-12-30 14:09 | Emergency (ER) | payer OTHER ==
[2020-12-30 14:19] VITALS: BMI 28.1
[2020-12-30 15:50] LABS: BASO % 0.3 % (0-2.0); EOS % 1.1 % (0-4.5); HEMATOCRIT 36.7 % (35.4-49); HEMOGLOBIN 12.7 GM/dL (11.7-16.9); LYMPH % 26.4 % (8-40); MCHC 34.7 g/dl (32.0-35.9); MEAN CELL VOLUME 92.3 fl (80-96); MEAN PLT VOLUME 8.2 fl (7.5-11.1); MONO % 8.3 % (3.8-10.2); NEUT % 63.9 % (42.8-82.8); PLATELET COUNT 243 10^3/uL (134-434); RBC 3.98 M/mm3 (4.00-5.60); RDW 13.8 % (11.9-15.9)
[2020-12-30 15:53] LABS: CHLORIDE 108 mmol/L (98-107); SODIUM 141 mmol/L (136-145)
[2020-12-30 15:55] LABS: ALBUMIN 3.8 g/dl (3.4-5.0); ANION GAP 8 MMOL/L (8-16); BLOOD UREA NITROGEN 19.2 mg/dL (7-18); CALCIUM 9.2 mg/dL (8.5-10.1); CO2 24 mmol/L (21-32); GLUCOSE,RANDOM 110 mg/dL (74-106)
[2020-12-30 15:58] LABS: CREATININE 0.7 mg/dL (0.55-1.3); SGOT/AST 33 U/L (15-37); SGPT/ALT 45 U/L (13-61)
[2020-12-30 16:00] LABS: BILIRUBIN,TOTAL 0.4 mg/dL (0.2-1); TOT PROT 7.5 g/dl (6.4-8.2)
[2020-12-30 16:01] LABS: ALK PHOS 63 U/L (45-117)
[2020-12-30 20:45] VITALS: BP 127/68; PULSE 88; TEMP 98.5
== END 2020-12-30 20:46 | disposition home or self-care (01) ==
LOC: JER 14:09
DX: R07.9 Chest pain, unspecified (principal)
CPT/HCPCS: 36415; 71045-TC-FY; 76705-TC; 80053; 82550; 82553; 84484; 85025; 93005; 93010; 99285-25

== ENCOUNTER 2021-08-13 04:37 | Day surgery (SDC) | payer BC ==
[2021-08-08 15:31] VITALS: BMI 31.2
[2021-08-13 08:34] VITALS: TEMP 97.5
[2021-08-13 09:18] VITALS: BP 107/64; PULSE 57
== END 2021-08-13 09:45 | disposition home or self-care (01) ==
LOC: JASU-ENDO 04:37
PROVIDERS: ATTEND Internal Medicine Gastroenterology
PROC: 0DBN8ZX Excision of Sigmoid Colon, Via Natural or Artificial Opening Endoscopic, Diagnostic (ICD-10-PCS; principal; 2021-08-13 08:00)
DX: Z12.11 Encounter for screening for malignant neoplasm of colon (principal); Z83.71 Family history of colonic polyps; D12.7 Benign neoplasm of rectosigmoid junction; D12.5 Benign neoplasm of sigmoid colon; K64.8 Other hemorrhoids; I10 Essential (primary) hypertension; E11.9 Type 2 diabetes mellitus without complications; Z79.84 Long term (current) use of oral hypoglycemic drugs
CPT/HCPCS: 82962; 88305-TC

== ENCOUNTER 2021-10-18 17:43 | Emergency (ER) | payer BC ==
[2021-10-18 18:08] VITALS: BP 131/89; PULSE 72; TEMP 98.1; BMI 29.9
== END 2021-10-18 20:42 | disposition home or self-care (01) ==
LOC: JERFT 17:43
PROC: 0H96XZZ Drainage of Back Skin, External Approach (ICD-10-PCS; principal; 2021-10-18)
DX: L02.212 Cutaneous abscess of back [any part, except buttock and flank] (principal)
CPT/HCPCS: 87070; 87205; 99282-25

== ENCOUNTER 2021-12-23 05:20 | Day surgery (SDC) | payer BC ==
[2021-12-19 17:02] VITALS: BMI 28.9
[2021-12-23] MEDS ORDERED: DEXMEDETOMIDINE HCL 200 MCG/2 ML IVPB ONE (10:45)
[2021-12-23] MEDS ORDERED: KETAMINE HCL 200 MG/20 ML VIAL ONE (10:54)
[2021-12-23] MEDS ORDERED: ONDANSETRON 4 MG/2 ML VIAL ONE (10:54)
[2021-12-23] MEDS ORDERED: ACETAMINOPHEN 325 MG TABLET (FP) PO PRN (10:58)
[2021-12-23] MEDS ORDERED: oxyCODONE HCL 5 MG TABLET PO PRN ×2 (10:58)
[2021-12-23] MEDS ORDERED: ONDANSETRON 4 MG/2 ML VIAL IVPUSH PRN (10:58)
[2021-12-23] MEDS ORDERED: MIDAZOLAM HCL 2 MG/2 ML SINGLE DOSE VIAL ONE (11:00)
[2021-12-23] MEDS ORDERED: LACTATED RINGERS SOLUTION 1,000 ML IV SCH (11:00)
[2021-12-23] MEDS ORDERED: LIDOCAINE HCL 0.5%, 5 MG/ML (50mL SDVIAL) ONE (11:01)
[2021-12-23] MEDS ORDERED: LIDOCAINE HCL 1%, 10 MG/ML (20ML VIAL) ONE (11:01)
[2021-12-23] MEDS ORDERED: ceFAZolin SODIUM 1 GM VIAL IVPB ONE (12:08)
[2021-12-23] MEDS ORDERED: ceFAZolin SODIUM 1 GM VIAL ONE ×2 (12:08)
[2021-12-23] MEDS ORDERED: BUPIVACAINE HCL/PF 0.5% (5 MG/ML) 30 ML VIAL IJ ONE (12:14)
[2021-12-23] MEDS ORDERED: LIDOCAINE HCL 1%, 10 MG/ML (20ML VIAL) SQ ONE (12:14)
[2021-12-23] MEDS ORDERED: POVIDONE-IODINE OINTMENT 10% - 28.4 GM TUBE TP ONE (12:33)
[2021-12-23 14:05] VITALS: RESP 18
[2021-12-23 15:58] VITALS: BP 123/79; PULSE 58; TEMP 98
== END 2021-12-23 15:25 | disposition home or self-care (01) ==
LOC: JASU-SURG 05:20
PROVIDERS: ATTEND Surgery
PROC: 0HB6XZZ Excision of Back Skin, External Approach (ICD-10-PCS; principal; 2021-12-23 12:30)
DX: L72.3 Sebaceous cyst (principal); E11.9 Type 2 diabetes mellitus without complications; I10 Essential (primary) hypertension
CPT/HCPCS: 82962; 88304-TC; 94760